=== PATIENT | male | born 1995 | race Hispanic/Latino ===

== ENCOUNTER 2024-12-19 05:36 | Emergency (ER) | payer SELFPAY ==
[2024-12-19] MEDS ORDERED: NA CHLORIDE 0.9% 1,000 ML ONE (06:08)
[2024-12-19] MEDS ORDERED: KETOROLAC 30 MG/ML INJ ONE (06:08)
[2024-12-19] MEDS ORDERED: ONDANSETRON 4 MG/2 ML VIAL ONE (06:08)
[2024-12-19 06:28] LABS: Absolute Lymphocytes (CBC) 2.6 K/uL (0.7-4.9); Hematocrit 46.6 % (39.6-49.0); Hemoglobin 16.5 g/dL (13.6-17.9); MCH 30.2 pg (27.0-35.0); MCHC 35.4 g/dL (32.0-36.0); MCV 85.1 fL (80-100); MPV 9.0 fL (7.6-11.3); Nucleated RBC Absolute Count 0.0 (0-0); Nucleated Red Blood Cells % 0.0 % (0-0); RBC Red Blood Cell Count 5.48 M/uL (4.33-5.43); White Blood Count 11.00 thou/uL (4.3-10.9)
[2024-12-19 06:33] LABS: Sqamous Epithelial <5 /HPF (None Seen); Urine Crystals Unidentified Few /HPF (None Seen); Urine Culture Reflex Order NOT NEEDED; Urine Microscopic Reflex YN ORDER UMIC; Urine WBC Clump Rare /HPF (None Seen); Urine Yeast (Budding) Trace /HPF (None Seen)
[2024-12-19 07:14] LABS: ALT/SGPT 68.0 U/L (16-61); AST/SGOT 21.0 U/L (15-37); Albumin 3.6 g/dL (3.4-5.0); Albumin/Globulin Ratio 1.1 (1.1-1.8); Alkaline Phosphatase 74.0 U/L (45-117); Anion Gap 10.8 mEq/L (5.0-15.0); BUN Blood Urea Nitrogen 13.0 mg/dL (7-18); Globulin 3.4 g/dL (2.3-3.5); Glucose Level 113.0 mg/dL (74-106); Potassium 3.8 mEq/L (3.5-5.1)
--- NOTE | 2024-12-19 07:21 | RAD REPORT ---
EXAM DESCRIPTION: Abdomen Pelvis Wo Contrast RadLex: CT ABDOMEN PELVIS WITHOUT IV CONTRAST CLINICAL HISTORY: 29 years Male; FLANK PAIN; NO CONTRAST TECHNIQUE: CT of the abdomen and pelvis without contrast. All CT scans at this facility use dose modulation, iterative reconstruction, and/or weight based dosi ng when appropriate to reduce radiation dose to as low as reasonably achievable. COMPARISON: None. FINDINGS: Lower thorax: Lung bases are clear Abdomen: Stomach: Within normal limits Liver: No focal lesions. Hepatic steatosis. No intrahepatic ductal distention. Gallbladder: Nondistended Pancreas: Within normal limits Spleen: Within normal limits Right kidney: Questionable mild hydronephrosis. No renal or ureteral calculi. Mild perinephric strand ing. Left kidney: No hydronephrosis. No renal or ureteral calculi. Adrenal glands: Within normal limits Vascular structures: Within normal limits (although limited evaluation on noncontrast exam). Lymph nodes: No lymphadenopathy by size criteria Pelvis: Small bowel: No significant distention. Appendix: Within normal limits Colon: No distention or acute pericolonic edema. Colonic diverticulosis. Peritoneum: No free intraperitoneal fluid or air. Bones: No acute bone findings. Bladder: Under distended, limiting evaluation. Reproductive organs: No acute findings. Soft tissues: Small fat-containing umbilical hernia. Note that evaluation of the bowel and solid organs is somewhat limited due to lack of intravenous and oral contrast. IMPRESSION: 1. Questionable mild right-sided hydronephrosis with mild perinephric stranding. No renal or ureter al calculi. Findings could be secondary to recently passed stone versus ascending urinary tract infection. Correlate with urinalysis. 2. Hepatic steatosis. 3. Colonic diverticulosis without diverticulitis. Electronically signed by: Fox Carney MD 12/19/2024 07:15 AM [facility] Due to temporary technical issues with the [employer] reporting system, reports are being seth d by the in-house radiologist without review as a courtesy to ensure prompt reporting the interpreting radiologist is fully responsible for the content of the report. Transcribed Date/Time: 12/19/2024 7:21 AM
--- NOTE | 2024-12-19 07:23 | EDPHYS ---
Physician Documentation [facility] Name: August Rubio Age: 29 yrs Sex: Male : 1995 Arrival Date: 12/19/2024 Time: 05:36 Bed 20 Private MD: ED Physician Eddie Martin HPI: 12/19 06:08 This 29 yrs old Male presents to ER via Ambulatory with complaints of Urinary ms3 Frequency, Possible Kidney Stone, Back Pain, Abdominal Pain. 06:08 29-year-old male with no past medical history presents to the emergency department for ms3 right flank pain and urinary frequency that occurred 2 hours prior to arrival. Patient states his discomfort is a 7/10. Patient endorses nausea, vomiting, chills. He states walking makes the pain better. He denies inciting factors. Historical: - Allergies: 05:48 No Known Allergies; zm - Home Meds: 05:48 None [Active]; zm - PMHx: 06:23 None; bm8 - PSHx: 06:23 None; lower lip repair; bm8 - Immunization history:: Adult Immunizations up to date. - Infectious Disease History:: Denies. - Social history:: Smoking status: Patient denies any tobacco usage or history of. ROS: 06:08 Constitutional: Negative for fever, and chills. Cardiovascular: Negative for chest ms3 pain, and palpitations. Respiratory: Negative for shortness of breath, cough, wheezing, and pleuritic chest pain, Abdomen/GI: Negative for abdominal pain, nausea, vomiting, diarrhea, and constipation, MS/Extremity: Negative for injury and deformity, 06:08 : Positive for urinary frequency, Exam: 06:08 Constitutional: This is a well developed, well nourished patient who is awake, alert, ms3 and in no acute distress. Cardiovascular: Regular rate and rhythm with a normal S1 and S2. No gallops, murmurs, or rubs. Normal PMI, no JVD. No pulse deficits. Respiratory: Lungs have equal breath sounds bilaterally, clear to auscultation and percussion. No rales, rhonchi or wheezes noted. No increased work of breathing, no retractions or nasal flaring. Abdomen/GI: Soft, non-tender, with normal bowel sounds. No distension or tympany. No guarding or rebound. No evidence of tenderness throughout. 06:08 Back: No spinal tenderness. No costovertebral tenderness. Full range of motion. Skin: Warm, dry with normal turgor. Normal color with no rashes, no lesions, and no evidence of cellulitis. Vital Signs: 05:45 BP 167 / 106; Pulse 72; Resp 16; Temp 99.3; Pulse Ox 100% on R/A; Weight 120.2 kg; zm Height 5 ft. 8 in. ; Pain 7/10; 07:13 BP 138 / 75; Pulse 69; Resp 15; Temp 97.9; Pulse Ox 100% ; Pain 0/10; jl7 05:45 Body Mass Index 40.29 (120.20 kg, 172.72 cm) zm 05:45 Pain Scale: Adult zm 07:13 Pain Scale: Adult jl7 MDM: 05:51 Medical Screening Exam initiated ms3 06:08 Differential diagnosis: Pyelonephritis sprain, Ureterolithiasis vertebral fracture, UTI.ms3 07:15 Independent interpretation of the following test(s) in the Emergency Department CT ms3 Scan: My interpretation is CT abdomen and pelvis images reviewed by me do not reveal ureterolithiasis.. Counseling: I had a detailed discussion with the patient and/or guardian regarding the presence of at least one elevated blood pressure reading (>120/80) during this emergency department visit. Special discussion: I have referred the patient to see his PCP for further evaluation of high blood pressure. 07:23 Data reviewed: vital signs, nurses notes, lab test result(s), radiologic studies, and ms3 as a result, I will discharge patient. I considered the following discharge prescriptions or medication management in the emergency department Medications were administered in the Emergency Department. See MAR. ED course: Discussed labs and CT scan with patient. Patient symptoms resolved at this time, patient is alert and orient x 4, no apparent distress, nontoxic-appearing, speaking full sentences, ambulatory in the emergency department. Patient to follow-up with primary care physician in 2 to 3 days. Patient understands and agrees with plan. All questions were answered. Return precautions discussed include worsening symptoms, or any other concerns. 12/19 05:43 Order name: CBC with Diff; Complete Time: 06:47 ms3 12/19 05:43 Order name: CMP; Complete Time: 07:15 ms3 12/19 05:43 Order name: UA Rfx Hardik Cult if indicated; Complete Time: 06:35 ms3 12/19 05:43 Order name: CT Abd/Pelvis - Without Contrast ms3 12/19 05:43 Order name: IV Saline Lock; Complete Time: 06:20 ms3 12/19 05:43 Order name: Labs collected and sent; Complete Time: 06:20 ms3 Administered Medications: 06:20 Drug: TORadol - Ketorolac IVP 15 mg IVP once Route: IVP; Site: left antecubital; bm8 06:55 Follow up: Response: No adverse reaction 06:20 Drug: NS 0.9% IV 1000 ml IV at 1 bolus Per protocol; to be given as a bolus over 60 bm8 minutes Route: IV; Rate: 1 bolus; Site: left antecubital; 08:13 Follow up: Response: No adverse reaction; IV Status: Completed infusion; IV Intake: jl7 1000ml Disposition Summary: 12/19/24 07:23 Discharge Ordered Notes: Location: Home ms3 Condition: Stable ms3 Diagnosis - Right flank pain ms3 - Elevated Blood pressure ms3 - Hepatic steatosis ms3 Discharge Instructions: - Discharge Summary Sheet ms3 - Flank Pain, Adult ms3 - Hypertension, Adult, [id number] ms3 Forms: - Medication Reconciliation Form ms3 - Antibiotic Education ms3 - Prescription Opioid Use ms3 - Patient Portal Instructions ms3 - Leadership Thank You Letter ms3 Signatures: Dispatcher [employer] EDMS Eddie Martin DO DO ms3 Courtney Quiroz RN RN Ollie Tucker RN RN bm8 Cheri Botello RN jl7 Corrections: (The following items were deleted from the chart) 05:43 05:43 CBC+H.LAB.BRZ ordered. EDMS EDMS 05:43 05:43 COMPREHENSIVE METABOLIC PANEL+C.LAB.BRZ ordered. EDMS EDMS 05:43 05:43 UA Rfx Hardik Cult if indicated+U.LAB.BRZ ordered. EDMS EDMS 05:43 05:43 Abdomen Pelvis Wo Con+CT.RAD.BRZ ordered. EDMS EDMS
--- NOTE | 2024-12-19 07:23 | ER ---
Nurse's Notes [facility] Name: August Rubio Age: 29 yrs Sex: Male : 1995 Arrival Date: 12/19/2024 Time: 05:36 Bed 20 Private MD: Diagnosis: Right flank pain;Elevated Blood pressure;Hepatic steatosis Presentation: 12/19 05:45 Chief complaint: Patient states: c/o right lower back pain and urge to urinate with zm burning upon voiding. Coronavirus screen: Vaccine status: Patient reports being unvaccinated. Client denies travel out of the [place] in the last 14 days. At this time, the client does not indicate any symptoms associated with coronavirus-19. Ebola Screen: Patient denies travel to an Ebola-affected area in the 21 days before illness onset. No symptoms or risks identified at this time. Initial Sepsis Screen: Does the patient meet any 2 criteria? No. Patient's initial sepsis screen is negative. Does the patient have a suspected source of infection? No. Patient's initial sepsis screen is negative. Risk Assessment: Do you want to hurt yourself or someone else? Patient reports no desire to harm self or others. Onset of symptoms was December 19, 2024 at 03:00. 05:45 Method Of Arrival: Ambulatory zm 05:45 Acuity: AMINA 3 zm Triage Assessment: 05:45 General: Appears in no apparent distress. uncomfortable, Behavior is calm, cooperative. zm Pain: Complains of pain in right low back Pain currently is 7 out of 10 on a pain scale. Quality of pain is described as throbbing, Pain began 3 hours ago. Is continuous, Alleviated by walking around. EENT: No deficits noted. No signs and/or symptoms were reported regarding the EENT system. Neuro: No deficits noted. Level of Consciousness is awake, alert, obeys commands, Oriented to person, place, time, situation. Cardiovascular: No deficits noted. Capillary refill < 3 seconds in bilateral fingers Chest pain is denied. Respiratory: No deficits noted. Airway is patent. GI:. GI: No deficits noted. No signs and/or symptoms were reported involving the gastrointestinal system. : Urine is clear, Last void was December 19, 2024. at 05:57. Reports burning with urination, since 0300 december 19, 2024 urgency, since 0300 urinary frequency, since 0300. Derm: No deficits noted. No signs and/or symptoms reported regarding the dermatologic system. Musculoskeletal: No deficits noted. No signs and/or symptoms reported regarding the musculoskeletal system. Historical: - Allergies: 05:48 No Known Allergies; zm - Home Meds: 05:48 None [Active]; zm - PMHx: 06:23 None; bm8 - PSHx: 06:23 None; lower lip repair; bm8 - Immunization history:: Adult Immunizations up to date. - Infectious Disease History:: Denies. - Social history:: Smoking status: Patient denies any tobacco usage or history of. Screenin:25 [facility] ED Fall Risk Assessment (Adult) History of falling in the last 3 months, bm8 including since admission No falls in past 3 months (0 pts) Confusion or Disorientation No (0 pts) Intoxicated or Sedated No (0 pts) Impaired Gait No (0 pts) Mobility Assist Device Used No (0 pt) Altered Elimination No (0 pt) Score/Fall Risk Level 0 - 2 = Low Risk Oriented to surroundings, Maintained a safe environment, Educated pt \T\ family on fall prevention, incl call for assistance when getting out of bed, Assessed \T\ reinforced patient's understanding of fall precautions, Hourly rounding (assess needs \T\ fall precautionary measures) done, Used ambulatory aids as needed (educated on \T\ assisted with), Used gait belt as appropriate. Abuse screen: Denies threats or abuse. Nutritional screening: No deficits noted. Tuberculosis screening: No symptoms or risk factors identified. Assessment: 07:13 General: Appears in no apparent distress. uncomfortable, Behavior is calm, cooperative, jl7 appropriate for age. Pain: Denies pain. Neuro: Level of Consciousness is awake, alert, obeys commands, Oriented to person, place, time, situation. Cardiovascular: Patient's skin is warm and dry. Respiratory: Airway is patent Respiratory effort is even, unlabored, Respiratory pattern is regular, symmetrical. : Reports Right flank pain has resolved at this time. Derm: Skin is pink, warm \T\ dry. 07:42 Reassessment: Pt will be discharged once fluids are done infusing. jl7 Vital Signs: 05:45 BP 167 / 106; Pulse 72; Resp 16; Temp 99.3; Pulse Ox 100% on R/A; Weight 120.2 kg; zm Height 5 ft. 8 in. ; Pain 7/10; 07:13 BP 138 / 75; Pulse 69; Resp 15; Temp 97.9; Pulse Ox 100% ; Pain 0/10; jl7 05:45 Body Mass Index 40.29 (120.20 kg, 172.72 cm) zm 05:45 Pain Scale: Adult zm 07:13 Pain Scale: Adult jl7 ED Course: 05:38 Patient arrived in ED. jj6 05:42 Eddie Martin DO is Attending Physician. ms3 05:44 Ollie Tucker, RN is Primary Nurse. bm8 05:45 Arm band placed on right wrist. zm 05:48 Triage completed. zm 06:25 CT Abd/Pelvis - Without Contrast In Process Unspecified. EDMS 06:25 Patient has correct armband on for positive identification. Placed in gown. Bed in low bm8 position. Call light in reach. Side rails up X 1. Adult w/ patient. Client placed on continuous cardiac and pulse oximetry monitoring. NIBP monitoring applied. monitoring and evaluation advisor on. Pulse ox on. NIBP on. Door closed. Noise minimized. Warm blanket given. Verbal reassurance given. Head of bed elevated. 06:25 No provider procedures requiring assistance completed. Initial lab(s) drawn, by ED bm8 staff, sent to lab. Urine collected: clean catch specimen, clear. Inserted saline lock: 20 gauge in left antecubital area, using aseptic technique. Blood collected. Flushed with 10 mL NS. 07:06 Report given to AMY Alonzo. zm 07:13 Provided Education on: use of all perez. jl7 07:13 Maintain EMS IV. Dressing intact. Good blood return noted. Site clean \T\ dry. Gauge \T\ jl 7 site: 20 Left AC. Flushed with 10 mL NS. 08:14 IV discontinued, intact, bleeding controlled, No redness/swelling at site. Pressure jl7 dressing applied. Administered Medications: 06:20 Drug: TORadol - Ketorolac IVP 15 mg IVP once Route: IVP; Site: left antecubital; bm8 06:55 Follow up: Response: No adverse reaction 06:20 Drug: NS 0.9% IV 1000 ml IV at 1 bolus Per protocol; to be given as a bolus over 60 bm8 minutes Route: IV; Rate: 1 bolus; Site: left antecubital; 08:13 Follow up: Response: No adverse reaction; IV Status: Completed infusion; IV Intake: jl7 1000ml Medication: 06:25 VIS not applicable for this client. bm8 Intake: 08:13 IV: 1000ml; Total: 1000ml. jl7 Outcome: 07:23 Discharge ordered by . ms3 08:14 Discharged to home ambulatory, jl7 08:14 Condition: stable 08:14 Discharge instructions given to patient, Instructed on discharge instructions, follow up and referral plans. Demonstrated understanding of instructions, follow-up care, 08:14 Patient left the ED. jl7 Signatures: Dispatcher [employer] EDMS Cheri Botello RN RN jl7 Eddie Martin DO DO ms3 Susan Ordaz jj6 Courtney Quiroz RN RN Ollie Cifuentes RN RN bm8 Corrections: (The following items were deleted from the chart) 05:51 05:45 BP 167 / 106; Pulse 72bpm; Resp 16bpm; Pulse Ox 100% RA; Temp 99.3F; zm zm 06:26 05:45 General: Appears in no apparent distress. uncomfortable, Behavior is calm, zm cooperative, restless, zm 07:06 07:04 Report received from AMY Alonzo
[2024-12-19 12:44] VITALS: O2SAT 100
[2024-12-19 12:46] VITALS: BP 138/75; TEMP 97.9
== END 2024-12-19 08:14 | disposition home or self-care (01) ==
LOC: ER 05:36
DX: K76.0 Fatty (change of) liver, not elsewhere classified (principal); R03.0 Elevated blood-pressure reading, without diagnosis of hypertension
CPT/HCPCS: 36415; 74176; 80053; 81001; 85025; 96361; 96374; 99285; J2405; J7030